=== PATIENT | female | born 1975 | race Caucasian/White ===

== ENCOUNTER 2018-03-16 20:06 | Emergency (ER) | payer MEDICAID ==
--- NOTE | 2018-03-16 20:17 | EDPHY ---
H & P Stated Complaint: Food posioning, chest pain/heartburn Time Seen by Provider: 03/16/18 20:14 HPI/ROS: HPI: This is a 42-year-old female who presents with Chief Complaint: Food poisoning, chest Location: Epigastric Quality: Burning sensation Duration: 2 and half days Signs and Symptoms: no fever,+ nausea, + vomiting x 2, no hematemesis, no blood in stool, no abdominal bloating, + diarrhea, no back pain, no urinary symptoms, no vaginal bleeding/discharge, no indigestion, no chest pain, no shortness of breath Timing: Acute, improved Severity: Moderate Context: Patient reports that she ate a salad with a [place] dressing from [employer] on Tuesday approximately 2 and half days ago at 5:00 p.m. An hour and half later. She reports that she had nausea followed by vomiting x2 of her stomach contents. The next day she had several episodes of loose stool. Denies any hematemesis/blood in her stool/fever/back pain/urinary symptoms. Patient complains that she has a burning epigastric sensation. She has been eating food today without any difficulty. LMP 1-7 days ago. No history of hiatal hernia. Patient reports that she has lost 40 lb over the last several months due to her improved eating habits. Patient feels that her symptoms are improving. She is just worried that she may be dehydrated. Patient reports that she has had no vomiting or diarrhea today. Modifying Factors: None Comment: ROS: see HPI Constitutional: No fever, no chills, no weight loss Eyes: No blurred vision Respiratory: No shortness of breath, no cough Cardiovascular: No chest pain, no palpitations Gastrointestinal: + nausea, + vomiting, + diarrhea, no hematemesis, no blood in stool Genitourinary: No dysuria, no blood in urine Extremities: No myalgias, no edema Neurologic: No weakness, no numbness Skin: No rashes, no petechiae Hematologic: No bruising, no bleeding MEDICAL/SURGICAL/SOCIAL HISTORY: Medical history: Generally healthy. Does not take any regular medications. Surgical history: Denies Social history: Never smoked. Family history noncontributory. CONSTITUTIONAL: Overweight white middle-aged female, awake and alert, no obvious distress HEENT: Atraumatic and normocephalic, PERRL, EOMI. Nares patent; no rhinorrhea; no nasal mucosal edema. Tympanic membranes clear. Oropharynx clear, no exudate and moist pink mucosa. Airway patent. No lymphadenopathy. No meningismus. Cardiovascular: Normal S1/S2, regular rate, regular rhythm, without murmur rub or gallop. PULMONARY/CHEST: Symmetrical and nontender. Clear to auscultation bilaterally. Good air movement. No accessory muscle usage. ABDOMEN: Soft, obesely round, mild epigastric tenderness, no rebound, no guarding, no peritoneal signs, no masses or organomegaly. No CVAT. EXTREMITIES: 2/2 pulses, strength 5/5, no deformities, no clubbing, no cyanosis or edema. NEUROLOGICAL: no focal neuro deficits. GCS 15. SKIN: Warm and dry, no erythema. no rash. Good capillary refill. Source: Patient Exam Limitations: No limitations - Personal History LMP (Females 10-55): 1-7 Days Ago Current Tetanus Diphtheria and Acellular Pertussis (TDAP): No Tetanus Vaccine Date: 2005 - Medical/Surgical History Hx Asthma: No Hx Chronic Respiratory Disease: No Hx Diabetes: No Hx Cardiac Disease: No Hx Renal Disease: No Hx Cirrhosis: No Hx Alcoholism: No Hx HIV/AIDS: No Hx Splenectomy or Spleen Trauma: No Other PMH: denies - Social History Smoking Status: Never smoked Constitutional: Initial Vital Signs Temperature (C) 36.8 C 03/16/18 20:07 Heart Rate 79 03/16/18 20:07 Respiratory Rate 18 03/16/18 20:07 Blood Pressure 131/96 H 03/16/18 20:07 O2 Sat (%) 96 03/16/18 20:07 O2 Delivery Mode Room Air Allergies/Adverse Reactions: No Known Allergies Allergy (Verified 03/16/18 20:07) Home Medications: Medication Instructions Recorded No Medications [NO HOME 1 ea MISC 01/25/12 MEDICATIONS] Cephalexin [Keflex] 500 mg PO QID #28 cap 04/26/12 Ondansetron Odt [Zofran Odt 4 mg 4 mg PO Q4 PRN #12 tab 03/16/18 (*)] Medical Decision Making - Diagnostics EKG Interpretation: 12 lead EKG: Indication: Abdominal pain Rhythm: Normal sinus rhythm, rate of 69 beats per minute [place]: Borderline left Intervals: Normal QRS: Normal ST segments: Normal INTERPRETATION: No acute ischemic changes The 12 lead EKG was interpreted by myself and with attending. ED Course/Re-evaluation: Labs, urinalysis, IV fluids, IV medications ordered Patient's abdomen is relatively soft and nontender. Doubt surgical abdomen. No need for abdominal imaging. Given 1 L normal saline, IV Pepcid and GI cocktail EKG performed and shows no acute ischemic changes or arrhythmia. 2133: Labs reviewed. No signs of leukocytosis/anemia/AISHWARYA/elevated LFTs/ electrolyte imbalance/. 2145: Reassessed patient. Reports that she feels 100% better. Drinking fluids without any difficulty. Abdomen soft and nontender. Patient will be discharged home with a prepack of Zofran and prescription for same. This patient was seen under the supervision of my secondary supervising physician. I evaluated care for this patient independently. Differential Diagnosis: Abdominal pain including but not limited to appendicitis, cholecystitis, gastritis and urinary tract infection. - Data Points Laboratory Results: Laboratory Results 03/16/18 20:39 03/16/18 20:39 03/16/18 03/16/18 03/16/18 21:36 20:39 20:39 WBC RBC Hgb Hct MCV MCH MCHC RDW Plt Count MPV Neut % (Auto) Lymph % (Auto) [place] % (Auto) Eos % (Auto) Baso % (Auto) Nucleat RBC Rel Count Absolute Neuts (auto) Absolute Lymphs (auto) Absolute Monos (auto) Absolute Eos (auto) Absolute Basos (auto) Absolute Nucleated RBC Immature Gran % Immature Gran # Sodium 141 mEq/L mEq/L (135-145) Potassium 4.0 mEq/L mEq/L (3.3-5.0) Chloride 104 mEq/L mEq/L (97-110) Carbon Dioxide 23 mEq/l mEq/l (22-31) Anion Gap 14 mEq/L mEq/L (8-16) BUN 12 mg/dL mg/dL (7-23) Creatinine 0.7 mg/dL mg/dL (0.6-1.0) Estimated GFR > 60 Glucose 90 mg/dL mg/dL (70-100) Calcium 9.3 mg/dL mg/dL (8.5-10.4) Total Bilirubin 0.8 mg/dL mg/dL (0.1-1.4) Conjugated Bilirubin 0.4 mg/dL mg/dL (0.0-0.5) Unconjugated Bilirubin 0.4 mg/dL mg/dL (0.0-1.1) AST 17 IU/L IU/L (14-46) ALT 34 IU/L IU/L (9-52) Alkaline Phosphatase 49 IU/L IU/L (38-126) Total Protein 7.0 g/dL g/dL (6.3-8.2) Albumin 4.0 g/dL g/dL (3.5-5.0) Lipase 196 IU/L IU/L (23-300) Beta HCG, Qual NEGATIVE Urine Color Pending Urine Appearance Pending Urine pH Pending Ur Specific [place] Pending Urine Protein Pending Urine Ketones Pending Urine Blood Pending Urine Nitrate Pending Urine Bilirubin Pending Urine Urobilinogen Pending Ur Leukocyte Esterase Pending Urine Glucose Pending 03/16/18 20:39 WBC 10.13 10^3/uL H 10^3/uL (3.80-9.50) RBC 4.21 10^6/uL 10^6/uL (4.18-5.33) Hgb 12.1 g/dL L g/dL (12.6-16.3) Hct 37.5 % L % (38.0-47.0) MCV 89.1 fL fL (81.5-99.8) MCH 28.7 pg pg (27.9-34.1) MCHC 32.3 g/dL L g/dL (32.4-36.7) RDW 14.2 % % (11.5-15.2) Plt Count 367 10^3/uL 10^3/uL (150-400) MPV 10.6 fL fL (8.7-11.7) Neut % (Auto) 58.1 % % (39.3-74.2) Lymph % (Auto) 32.2 % % (15.0-45.0) [facility] % (Auto) 6.0 % % (4.5-13.0) Eos % (Auto) 2.8 % % (0.6-7.6) Baso % (Auto) 0.7 % % (0.3-1.7) Nucleat RBC Rel Count 0.0 % % (0.0-0.2) Absolute Neuts (auto) 5.89 10^3/uL 10^3/uL (1.70-6.50) Absolute Lymphs (auto) 3.26 10^3/uL H 10^3/uL (1.00-3.00) Absolute Monos (auto) 0.61 10^3/uL 10^3/uL (0.30-0.80) Absolute Eos (auto) 0.28 10^3/uL 10^3/uL (0.03-0.40) Absolute Basos (auto) 0.07 10^3/uL 10^3/uL (0.02-0.10) Absolute Nucleated RBC 0.00 10^3/uL 10^3/uL (0-0.01) Immature Gran % 0.2 % % (0.0-1.1) Immature Gran # 0.02 10^3/uL 10^3/uL (0.00-0.10) Sodium Potassium Chloride Carbon Dioxide Anion Gap BUN Creatinine Estimated GFR Glucose Calcium Total Bilirubin Conjugated Bilirubin Unconjugated Bilirubin AST ALT Alkaline Phosphatase Total Protein Albumin Lipase Beta HCG, Qual Urine Color Urine Appearance Urine pH Ur Specific [place] Urine Protein Urine Ketones Urine Blood Urine Nitrate Urine Bilirubin Urine Urobilinogen Ur Leukocyte Esterase Urine Glucose Medications Given: Discontinued Medications Al Hydroxide/Mg Hydroxide (Maalox Susp) 30 ml PO ONCE ONE Stop: 03/16/18 20:30 Last Admin: 03/16/18 20:53 Dose: 30 ml Hyoscyamine Sulfate (Levsin, Hyomax-Sl) 0.25 mg PO ONCE ONE Stop: 03/16/18 20:30 Last Admin: 03/16/18 20:50 Dose: 0.25 mg Sodium Chloride (Ns) 1,000 mls @ 0 mls/hr IV EDNOW ONE; Wide Open PRN Reason: Protocol Stop: 03/16/18 20:30 Last Admin: 03/16/18 20:47 Dose: 1,000 mls Famotidine/Sodium Chloride (Pepcid 20 Mg (Premix)) 50 mls @ 200 mls/hr IV EDNOW ONE Stop: 03/16/18 20:43 Last Admin: 03/16/18 20:48 Dose: 50 mls Lidocaine (Lidocaine 2% Viscous) 15 ml PO ONCE ONE Stop: 03/16/18 20:30 Last Admin: 03/16/18 20:53 Dose: 15 ml Departure - Departure Disposition: Home, Routine, Self-Care Clinical Impression: Foodborne gastroenteritis Condition: Good Instructions: Gastroenteritis (ED), Food Poisoning (ED) Additional Instructions: Consume a minimum of 8-10 glasses of water or electrolyte fluid replacement drinks that include Gatorade, Powerade, Pedialyte. Eat a bland diet for the next 48 hours and then slowly advance as tolerated. Take Zofran 1 tab every 4 hours as needed for nausea, vomiting. Return to the Emergency Room if symptoms do not resolve in the next 72 hours, you spike a fever > 102 F, or experience intractable abdominal pain/nausea/ vomiting. Referrals: PCP Not In,Dictionary [Medical Doctor] - As per Instructions Prescriptions: Ondansetron Odt [Zofran Odt 4 mg (*)] 4 mg PO Q4 PRN #12 tab PRN Reason: Nausea/Vomiting, Use 1st
[2018-03-16] MEDS ORDERED: MAG HYDROX/AL HYDROX/SIMETH 30 ML UDCUP PO ONE (20:29)
[2018-03-16] MEDS ORDERED: FAMOTIDINE 20 MG/NACL 50 ML IV ONE (20:29)
[2018-03-16] MEDS ORDERED: LIDOCAINE 2% VISCOUS 15 ML UDCUP PO ONE (20:29)
[2018-03-16] MEDS ORDERED: NS 1,000 ML IV ONE (20:29)
[2018-03-16] MEDS ORDERED: HYOSCYAMINE SULFATE 0.125 MG TAB PO ONE (20:29)
--- NOTE | 2018-03-16 20:30 | CPEKG ---
Heart Rate: 69 RR Interval: 870 P-R Interval: 148 QRSD Interval: 82 QT Interval: 392 QTC Interval: 420 P [place]: 24 QRS [place]: -25 T Wave [place]: 16 EKG Severity - OTHERWISE NORMAL ECG - EKG Impression: SINUS RHYTHM EKG Impression: BORDERLINE LEFT AXIS DEVIATION Electronically Signed By: Jyoti Beltrán 16-Mar-2018 22:48:50
[2018-03-16 20:47] LABS: PLATELET COUNT 367 10^3/uL (150-400)
[2018-03-16] MEDS ORDERED: ONDANSETRON DISINTEGRATING 4 MG TAB PO ONE (21:35)
[2018-03-16] MEDS ORDERED: ONDANSETRON 4MG PREPACK#2 BTL TAKEHOME ONE (21:44)
[2018-03-16 22:04] VITALS: BP 130/80
== END 2018-03-16 22:03 | disposition home or self-care (01) ==
DX: A05.9 Bacterial foodborne intoxication, unspecified (principal); E86.9 Volume depletion, unspecified
CPT/HCPCS: 96365